=== PATIENT | female | born 1945 | race Two or more races ===

== ENCOUNTER 2016-09-03 14:13 | Inpatient (IN) | payer OTHER ==
--- NOTE | 2016-09-03 14:58 | PDOC ---
History of Present Illness - History of Present Illness Initial Comments: 09/03/16 16:07 [employer] #[id number] The patient is a 71 year old female, with a significant past medical history of hypertension and GERD, who presents to the emergency department with intermittent chest pain for 4 weeks. She states she was prompted to come into the ED when the pain woke her from sleep at 4:30AM. She reports the pain radiates across the area just under her breasts, as well as, from her right breast to her midsternal region. She reports some mild nausea when her pain radiates up her chest, but she attributes the nausea to her acid reflux. She states the pain occurs intermittently, both at rest and with exertion. She describes the pain as sharp and strong. She denies pain currently, but reports her pain is 10/10 while experiencing the pain. She denies lower extremity swelling. The patient reports having a negative cardiac cath in 2010. She denies shortness of breath, headache and dizziness. She denies fever, chills ,vomit, diarrhea. She denies dysuria, frequency, urgency and hematuria. Allergies: penicillins Past surgical history: partial thyroidectomy Social history: denies toxic habits PCP - Dr. Daniel Willis [employer] [facility] -Dr. Hargrove <Jennifer Crouch - Last Filed: 09/03/16 16:28> <Gail Lai - Last Filed: 09/05/16 10:34> - General Chief Complaint: Chest Pain Stated Complaint: 3 DAYS OF CHEST PAIN Time Seen by Provider: 09/03/16 14:37 Past History <Jennifer Crouch - Last Filed: 09/03/16 16:28> - Past Medical History HTN: Yes Thyroid Disease: Yes - Surgical History Appendectomy: Yes Cardiac Surgery: Yes (CARDIAC CATH NEG 2010) - Psycho/Social/Smoking Cessation Hx Anxiety: No Suicidal Ideation: No Smoking History: Former smoker Have you smoked in the past 12 months: No If you are a former smoker, when did you quit?: 2011 Information on smoking cessation initiated: No 'Breaking Loose' booklet given: 01/26/13 Hx Alcohol Use: No Drug/Substance Use Hx: No Substance Use Type: None <Gail Lai - Last Filed: 09/05/16 10:34> - Past Medical History Allergies/Adverse Reactions: Allergies Allergy/AdvReac Type Severity Reaction Status Date / Time Penicillins Allergy Verified 09/03/16 14:18 Home Medications: Ambulatory Orders Amlodipine Besylate [Norvasc -] 5 mg PO DAILY #0 tablet 01/27/13 Ramipril [Altace] 5 mg PO DAILY #0 capsule 01/27/13 Aspirin [Ecotrin] 81 mg PO DAILY 09/03/16 Review of Systems - Review of Systems Able to Perform ROS?: Yes Comments:: 09/03/16 16:09 GENERAL/CONSTITUTIONAL: No fever or chills. No weakness. HEAD, EYES, EARS, NOSE AND THROAT: No change in vision. No ear pain or discharge. No sore throat. CARDIOVASCULAR:(+) epigastric pain radiating to chest and throat. No shortness of breath. RESPIRATORY: No cough, wheezing, or hemoptysis. GASTROINTESTINAL: No nausea, vomiting, diarrhea or constipation. GENITOURINARY: No dysuria, frequency, or change in urination. MUSCULOSKELETAL: No joint or muscle swelling or pain. No neck or back pain. SKIN: No rash NEUROLOGIC: No headache, vertigo, loss of consciousness, or change in strength/ sensation. ENDOCRINE: No increased thirst. No abnormal weight change. HEMATOLOGIC/LYMPHATIC: No anemia, easy bleeding, or history of blood clots. ALLERGIC/IMMUNOLOGIC: No hives or skin allergy. <Jennifer Crouch - Last Filed: 09/03/16 16:28> *Physical Exam - Vital Signs Last Vital Signs Temp Pulse Resp BP Pulse Ox 97.6 F 52 L 20 117/74 100 09/03/16 14:16 09/03/16 15:56 09/03/16 15:56 09/03/16 15:56 09/03/16 15:56 - Physical Exam Comments: 09/03/16 16:10 GENERAL: Awake, alert, and fully oriented, in no acute distress HEAD: No signs of trauma EYES: PERRLA, EOMI, sclera anicteric, conjunctiva clear ENT: Auricles normal inspection, hearing grossly normal, nares patent, oropharynx clear without exudates. Moist mucosa NECK: Normal ROM, supple, no lymphadenopathy, JVD, or masses LUNGS: Breath sounds equal, clear to auscultation bilaterally. No wheezes, and no crackles HEART: Regular rate and rhythm, normal S1 and S2, no murmurs, rubs or gallops ABDOMEN: Soft, nontender, normoactive bowel sounds. No guarding, no rebound. No masses EXTREMITIES: Normal range of motion, no edema. No clubbing or cyanosis. No cords, erythema, or tenderness NEUROLOGICAL: Cranial nerves II through XII grossly intact. Normal speech, normal gait SKIN: Warm, Dry, normal turgor, no rashes or lesions noted. <Jennifer Crouch - Last Filed: 09/03/16 16:28> - Vital Signs Last Vital Signs Temp Pulse Resp BP Pulse Ox 97.6 F 48 L 18 137/52 98 09/03/16 14:16 09/03/16 14:16 09/03/16 14:16 09/03/16 14:16 09/03/16 14:16 <Gail Lai - Last Filed: 09/05/16 10:34> Heart Score/ECG Review - History History: Moderately suspicious - Electrocardiogram EKG: Normal - Age Age: >/= 65 - Risk Factors Risk Factors Heart Score: Yes Hx Hypertension Based on the list above the patient has:: 1-2 risk factors - Troponin Troponin: </= normal limit - Score Heart Score - Total: 4 <Gail Lai - Last Filed: 09/05/16 10:34> ED Treatment Course - LABORATORY CBC & Chemistry Diagram: 09/03/16 15:01 09/03/16 15:01 - ADDITIONAL ORDERS Additional order review: 09/03/16 15:01 RBC 4.23 MCV 90.8 MCHC 33.2 RDW 14.5 MPV 8.5 Neutrophils % 76.1 Lymphocytes % 16.1 Monocytes % 6.6 Eosinophils % 0.8 Basophils % 0.4 <Jennifer Crouch - Last Filed: 09/03/16 16:28> - LABORATORY CBC & Chemistry Diagram: 09/03/16 15:01 09/03/16 15:01 <Gail Lai - Last Filed: 09/05/16 10:34> Medical Decision Making - Medical Decision Making Dr. Gail Bardales was paged at 16:17 requesting a callback for doctor to doctor consult regarding admission of Dr. Willis's patient. Dr. Francescone was paged at 16:19 requesting a doctor to doctor consult. I have been informed that Dr. Velazco is on-call today. <Jennifer Crouch - Last Filed: 09/03/16 16:28> - Medical Decision Making Case d/w Dr. Velazco. Pt has been having cp/epigastric pain on and off for weeks , but had an episode that woke her from sleep in the middle of the night today. She is noted to have bradycardia, but no history of any beta-blockers. Will admit for further w/u. <Gail Lai - Last Filed: 09/05/16 10:34> *DC/Admit/Observation/Transfer - Attestations Scribe Attestion: 09/03/16 16:10 Documentation prepared by Jennifer Crouch, acting as adjunct faculty for medical terminology for Gail Lai MD <Jennifer Crouch - Last Filed: 09/03/16 16:28> - Discharge Dispostion Admit: Yes <Gail Lai - Last Filed: 09/05/16 10:34> Diagnosis at time of Disposition: Chest pain Qualifiers: Chest pain type: unspecified Qualified Code(s): R07.9 - Chest pain, unspecified - Discharge Dispostion Condition at time of disposition: Stable - Referrals
[2016-09-03 15:22] LABS: BASOPHIL 0.4 % (0-2.0); EOSINOPHIL 0.8 % (0-4.5); MCH 30.1 pg (25.7-33.7); MCHC 33.2 g/dl (32.0-36.0); MEAN CELL VOLUME 90.8 fl (80-96); MEAN PLT VOLUME 8.5 fl (7.5-11.1); NEUTROPHILS 76.1 % (42.8-82.8); PLATELET COUNT 295 K/MM3 (134-434); RDW 14.5 % (11.6-15.6); WHITE BLOOD COUNT 8.9 K/mm3 (4.0-10.0)
[2016-09-03 16:02] LABS: ALBUMIN 4.2 g/dl (3.4-5.0); ANION GAP 7 (8-16); BILIRUBIN,TOTAL 0.3 mg/dL (0.2-1.0); CALCIUM 9.9 mg/dL (8.5-10.1); CO2 28 mmol/L (21-32); COCKROFT - GAULT 83.2235; CREATININE 0.7 mg/dL (0.55-1.02); GLUCOSE,RANDOM 109 mg/dL (74-106); SGPT/ALT 19 U/L (12-78); TOT PROT 7.4 g/dl (6.4-8.2)
[2016-09-03 16:04] LABS: ALK PHOS 52 U/L (45-117); SGOT/AST 9 U/L (15-37); TROPONIN I < 0.02 ng/ml (0.00-0.05)
[2016-09-03 16:18] LABS: URINE APPEARANCE CLEAR; URINE BILIRUBIN NEGATIVE (NEGATIVE); URINE BLOOD NEGATIVE (NEGATIVE); URINE COLOR COLORLESS; URINE GLUCOSE (UA) NEGATIVE (NEGATIVE); URINE KETONE NEGATIVE (NEGATIVE); URINE LEUK ESTERASE NEGATIVE (NEGATIVE); URINE NITRITE NEGATIVE (NEGATIVE); URINE PROTEIN NEGATIVE (NEGATIVE); URINE UROBILINOGEN NEGATIVE E.U./dl (0.2-1.0)
--- NOTE | 2016-09-03 17:37 | CON.CARD ---
Consult Consult Specialty:: Cardiology Referred by:: ER Reason for Consultation:: Chest pain - History of Present Illness Chief Complaint: Chest pain History of Present Illness: 71 year old woman with h/o HTN, Ascending thoracic aortic aneurysm last 4.2cm, cardiac cath 2011 non-obstructive CAD, nuclear stress test 12/2015 with no ischemia, chronic atypical chest pain, asymptomatic sinus bradycardia came to ER with multiple episodes of chest pain today. Pt seen and examined in the ER in nad. no current chest pain. states that the pain is the same as always but happened multiple times today so she came to the ER. States the pain is not associated with exertion, sharp and pressure like radiating across her whole chest. no sob, palpitations, pnd, orthopnea, or LE edema. No lightheadedness, dizziness, syncope or near syncope. - History Source History Provided By: Patient, Family Member Limitations to Obtaining History: Language Barrier - Past Medical History Cardio/Vascular: Yes: Aneurysm, CAD, HTN, Hyperlipdemia - Alcohol/Substance Use Hx Alcohol Use: No - Smoking History Smoking history: Former smoker Have you smoked in the past 12 months: No If you are a former smoker, when did you quit?: 2012 - Social History ADL: Independent History of Recent Travel: No Home Medications - Allergies Allergies/Adverse Reactions: Allergies Allergy/AdvReac Type Severity Reaction Status Date / Time Penicillins Allergy Verified 09/03/16 14:18 - Home Medications Home Medications: Ambulatory Orders Amlodipine Besylate [Norvasc -] 5 mg PO DAILY #0 tablet 01/27/13 Ramipril [Altace] 5 mg PO DAILY #0 capsule 01/27/13 Aspirin [Ecotrin] 81 mg PO DAILY 09/03/16 Family Disease History - Family Disease History Family History: Denies Review of Systems - Review of Systems Constitutional: denies: No Symptoms, Chills, Diaphoresis, Fever, Lethargy, Loss of Appetite, Malaise, Night Sweats, Unintentional Wgt. Loss, Weakness, Other Eyes: denies: No Symptoms, Blind Spots, Blurred Vision, Double Vision, Eye Pain , Floaters, Photophobia, Recent Change in Vision, Other HENT: denies: No Symptoms, Difficult Swallowing, Ear Discharge, Ear Pain, Epistaxis, Gingival Bleeding, Hearing Loss, Mouth Swelling, Nasal Congestion, Ocular Prosthesis, Throat Pain, Toothache, Ringing in Ears, Other Neck: denies: No Symptoms, Decreased ROM, Lumps, Pain on Movement, Stiffness, Swollen Glands, Tenderness, Other Cardiovascular: reports: Chest Pain. denies: No Symptoms, Edema, Palpitations, Shortness of Breath, Other Respiratory: denies: No Symptoms, Cough, Exercise Intolerance, Hemoptysis, Orthopnea, PND, Snoring, SOB, SOB on Exertion, Wheezing, Other Gastrointestinal: denies: No Symptoms, Abdominal Pain, Bloating, Constipation, Diarrhea, Dysphagia, Indigestion, Melena, Nausea, Rectal Bleeding, Vomiting, Vomiting Blood, Other Genitourinary: denies: No Symptoms, Burning, Discharge, Dysuria, Flank Pain, Frequency, Hematuria, Incontinence, Lesions, Menses, Pain, Testicular Mass, Testicular Pain, Testicular Swelling, Urgency, Vaginal Bleeding, Other Breasts: denies: No Symptoms Reported, See HPI, Breast Implants, Discharge from Nipple, Lumps, Pain, Skin Changes, Other Musculoskeletal: denies: No Symptoms, Back Pain, Crepitus, Decreased ROM, Extremity Pain, Joint Pain, Joint Swelling, Muscle Pain, Muscle Cramps, Muscle Weakness, Other Integumentary: denies: No Symptoms, Blister, Bruising, Change in Color, Eczema, Erythema, Incision, Lesions, Lump, Pallor, Pruritis, Rash, Wound, Other Neurological: denies: No Symptoms, Change in LOC, Change in Speech, Confusion, Dizziness, Headache, Incoordination, Numbness, Parasthesia, Pre-Existing Deficit , Seizure, Syncope, Tremors, Unsteady Gait, Weakness, Other Endocrine: denies: No Symptoms, Excessive Sweating, Flushing, Increased Hunger, Increased Thirst, Intolerance to Cold, Intolerance to Heat, Unexplained Weight Gain, Unexplained Weight Loss, Other Hematology/Lymphatic: denies: No Symptoms, Easily Bruised, Excessive Bleeding, Swollen Glands, Other Psychiatric: denies: No Symptoms, Altered Sleep Pattern, Anxiety, Depression, Hallucinations, Panic, Paranoia, Suicidal, Other - Risk Factors Known Risk Factors: Yes: Hypercholesterolemia, Hypertension Vital Signs: Vital Signs Temperature 97.6 F 09/03/16 14:16 Pulse Rate 52 L 09/03/16 15:56 Respiratory Rate 20 09/03/16 15:56 Blood Pressure 117/74 09/03/16 15:56 O2 Sat by Pulse Oximetry (%) 100 09/03/16 15:56 Constitutional: Yes: Well Nourished, No Distress, Calm Eyes: Yes: WNL, Conjunctiva Clear, EOM Intact, PERRL HENT: Yes: WNL, Atraumatic, Normocephalic Neck: Yes: WNL, Supple, Trachea Midline Respiratory: Yes: WNL, Regular, CTA Bilaterally. No: Rales, Rhonchi, Wheezes Gastrointestinal: Yes: WNL, Normal Bowel Sounds, Soft. No: Distention, Tenderness Renal/: Yes: WNL Cardiovascular: Yes: WNL, Regular Rate and Rhythm. No: Bradycardia, Tachycardia , Pulse Irregular, Gallop, Rub, Varicosities JVD: No Carotid Bruit: No PMI: Non-Displaced Heart Sounds: Yes: S1, S2. No: Split S2, S3, S4, Clicks, Gallop, Rub, Bruit Murmur: No: Systolic Murmur, Diastolic Murmur Musculoskeletal: Yes: WNL Extremities: Yes: WNL Edema: No Peripheral Pulses WNL: Yes Peripheral Pulses: 2+ Left Doralis Pedis, 2+ Right Dorsalis Pedis Integumentary: Yes: WNL Neurological: Yes: WNL, Alert, Oriented, Cran Nerves II-XII Intact ...Motor Strength: WNL Psychiatric: Yes: WNL, Alert, Oriented - Other Data Labs, Other Data: CBC, BMP 09/03/16 15:01 09/03/16 15:01 Troponin, BNP 09/03/16 15:01 Troponin I < 0.02 Troponin, BNP 09/03/16 15:01 Troponin I < 0.02 ekg-sinus bradycardia 48bpm, NSST, no sig change from prior EKGS Echo: Report Reviewed Prior Cardiac Procedures: Cardiac Catheterization Imaging - Results Chest X-ray: Report Reviewed, Image Reviewed EKG: Report Reviewed, Image Reviewed Other: Report Reviewed, Image Reviewed Problem List - Problems (1) Chest pain Code(s): R07.9 - CHEST PAIN, UNSPECIFIED (2) Aortic aneurysm Code(s): I71.9 - AORTIC ANEURYSM OF UNSPECIFIED SITE, WITHOUT RUPTURE (3) CAD (coronary artery disease) Code(s): I25.10 - ATHSCL HEART DISEASE OF [place] CORONARY ARTERY W/O ANG PCTRS (4) HTN (hypertension) Code(s): I10 - ESSENTIAL (PRIMARY) HYPERTENSION (5) HLD (hyperlipidemia) Code(s): E78.5 - HYPERLIPIDEMIA, UNSPECIFIED (6) Abnormal EKG Code(s): R94.31 - ABNORMAL ELECTROCARDIOGRAM [ECG] [EKG] (7) Bradycardia Code(s): R00.1 - BRADYCARDIA, UNSPECIFIED Assessment/Plan 71 year old woman with h/o HTN, Ascending thoracic aortic aneurysm last 4.2cm, cardiac cath 2011 non-obstructive CAD, nuclear stress test 12/2015 with no ischemia, chronic atypical chest pain, asymptomatic sinus bradycardia came to ER with multiple episodes of chest pain today. Chest pain-atypical, unlikely ACS -cardiac cath as above -1st set cardiac enzymes wnl -no ischemia on ekg -trend serial cardiac enzymes and ekgs -tele observation overnight -will review cardiac cath results -pulses equal throughout and symptoms resolved, unlikely related to aortic aneursym -cont home meds including ASA -will check echo in am Aortic aneurysm-thoracic, mild last 4.2cm, stable -not on bblocker due to sinus bradycardia and fatigue -cont anti-HTN meds norvasc and ramipril HTN-adequate -cont home meds
[2016-09-03] MEDS ORDERED: ASPIRIN 81 MG CHEWABLE TABLETS PO ONE (18:04)
[2016-09-03] MEDS ORDERED: ASPIRIN 81 MG CHEWABLE TABLETS ONE (18:18)
[2016-09-04 03:35] LABS: TROPONIN I < 0.02 ng/ml (0.00-0.05)
--- NOTE | 2016-09-04 09:04 | PN ---
Progress Note, Physician Chief Complaint: feeling better - Current Medication List Current Medications: Active Medications Amlodipine Besylate (Norvasc -) 5 mg PO DAILY EARL Aspirin (Ecotrin -) 81 mg PO DAILY EARL Ramipril (Altace -) 5 mg PO DAILY EARL - Objective Vital Signs: Vital Signs Temperature 98.5 F 09/04/16 06:15 Pulse Rate 50 L 09/04/16 06:15 Respiratory Rate 20 09/04/16 06:15 Blood Pressure 143/79 09/04/16 09:01 O2 Sat by Pulse Oximetry (%) 99 09/04/16 06:15 Constitutional: Yes: No Distress Eyes: Yes: Conjunctiva Clear Cardiovascular: Yes: Regular Rate and Rhythm Respiratory: Yes: CTA Bilaterally Gastrointestinal: Yes: Soft Edema: No Neurological: Yes: Alert, Oriented ...Motor Strength: WNL Labs: Laboratory Tests 09/03/16 09/03/16 09/04/16 15:01 15:01 02:55 WBC 8.9 D Hct 38.4 Plt Count 295 Potassium 4.8 D Creatine Kinase 33 37 Troponin I < 0.02 < 0.02 - ....Imaging EKG: Image Reviewed Assessment/Plan Atypical CP Mildly dilated ascending aorta (4-4.2cm, stable) REC: Stress MPI today Repeat echo to assure ascending aorta stable, low suspicion pain related to aortic pathology. Further reccs pending these diagnostic studies today.
[2016-09-04] MEDS ORDERED: RAMIPRIL 5 MG CAPSULE (FP) PO SCH (10:00)
[2016-09-04] MEDS ORDERED: ASPIRIN COATED 81 MG TABLET.EC PO SCH (10:00)
[2016-09-04] MEDS ORDERED: amLODIPine BESYLATE 5 MG TABLET (FP) PO SCH (10:00)
--- NOTE | 2016-09-04 12:29 | EKG ---
Test Reason : Blood Pressure : / mmHG Vent. Rate : 048 BPM Atrial Rate : 048 BPM P-R Int : 180 ms QRS Dur : 082 ms QT Int : 420 ms P-R-T Axes : 037 052 033 degrees QTc Int : 375 ms SINUS BRADYCARDIA OTHERWISE NORMAL ECG WHEN COMPARED WITH ECG OF 19-MAR-2016 15:22, VENT. RATE HAS DECREASED BY 26 BPM Confirmed by HUEY MCKEON MD ([id number]) on 09/04/2016 12:29:21 PM Referred By: Confirmed By:HUEY MCKEON MD
[2016-09-04 13:45] VITALS: BMI 33.2
[2016-09-04 15:26] LABS: TROPONIN I < 0.02 ng/ml (0.00-0.05)
--- NOTE | 2016-09-04 16:38 | HP ---
Admitting History and Physical - Past Medical History Cardiovascular: Yes: Aneurysm, CAD, HTN, Hyperlipdemia ...: No - Smoking History Smoking history: Former smoker Have you smoked in the past 12 months: No If you are a former smoker, when did you quit?: 2011 - Alcohol/Substance Use Hx Alcohol Use: No - Social History ADL: Independent History of Recent Travel: No Home Medications - Allergies Allergies/Adverse Reactions: Allergies Allergy/AdvReac Type Severity Reaction Status Date / Time Penicillins Allergy Verified 09/03/16 14:18 - Home Medications Home Medications: Ambulatory Orders Amlodipine Besylate [Norvasc -] 5 mg PO DAILY #0 tablet 01/27/13 Ramipril [Altace] 5 mg PO DAILY #0 capsule 01/27/13 Aspirin [Ecotrin] 81 mg PO DAILY 09/03/16 Physical Examination Vital Signs: Vital Signs Temperature 98.6 F 09/04/16 13:19 Pulse Rate 61 09/04/16 13:19 Respiratory Rate 18 09/04/16 13:19 Blood Pressure 131/75 09/04/16 13:19 O2 Sat by Pulse Oximetry (%) 97 09/04/16 13:19 Problem List - Problems (1) Chest pain Code(s): R07.9 - CHEST PAIN, UNSPECIFIED Qualifiers: Chest pain type: unspecified Qualified Code(s): R07.9 - Chest pain, unspecified (2) HTN (hypertension) Code(s): I10 - ESSENTIAL (PRIMARY) HYPERTENSION (3) Hypothyroidism Code(s): E03.9 - HYPOTHYROIDISM, UNSPECIFIED
[2016-09-04 16:58] VITALS: BP 102/54; PULSE 53; TEMP 98.8
== END 2016-09-04 19:23 | disposition home or self-care (01) | DRG 313 ==
LOC: JER 14:13 → JERBED 17:33 → OBSVTOIN 09-04 01:08
PROVIDERS: ADMIT Internal Medicine; ATTEND Internal Medicine
DX: R07.9 Chest pain, unspecified (principal); K21.9 Gastro-esophageal reflux disease without esophagitis; I10 Essential (primary) hypertension; I71.2 Thoracic aortic aneurysm, without rupture; I25.10 Atherosclerotic heart disease of native coronary artery without angina pectoris; Z98.61 Coronary angioplasty status; R94.31 Abnormal electrocardiogram [ECG] [EKG]; R00.1 Bradycardia, unspecified; E78.5 Hyperlipidemia, unspecified; Z87.891 Personal history of nicotine dependence
CPT/HCPCS: 36415; 71010-TC; 78452-TC; 80053; 81003; 82550; 84484; 85025; 93005; 93010; 93017; 93306-TC; 99285-25; A9502; G0378

== ENCOUNTER 2018-01-19 15:20 | Emergency (ER) | payer OTHER ==
[2018-01-19 15:34] VITALS: BP 149/82; PULSE 92; TEMP 98.9; BMI 33.5
--- NOTE | 2018-01-19 15:37 | PDOC ---
Rapid Medical Evaluation Time Seen by Provider: 01/19/18 15:30 Medical Evaluation: Allergies Allergy/AdvReac Type Severity Reaction Status Date / Time Penicillins Allergy Verified 09/03/16 14:18 01/19/18 15:30 I have performed a brief in-person evaluation of this patient. The patient presents with a chief complaint of: R foot/Ankle swelling Pertinent physical exam findings:mid foot swelling and deformity in R foot I have ordered the following:xray The patient will proceed to the ED for further evaluation. Discharge Disposition - Diagnosis Foot pain, right - Referrals - Patient Instructions - Post Discharge Activity
[2018-01-19] MEDS ORDERED: IBUPROFEN 400 MG TABLET (FP) PO ONE ×2 (16:08→16:10)
--- NOTE | 2018-01-19 16:19 | PDOC ---
History of Present Illness - General Chief Complaint: Injury Stated Complaint: FALL Time Seen by Provider: 01/19/18 15:30 History Source: Patient Exam Limitations: Clinical Condition - History of Present Illness Initial Comments: 01/19/18 16:13 Patient with no sig Past medical history present with complain of right foot and ankle pain and swelling status post slip while going down stairs this afternoon. Patient denies loss of consciousness or hitting head doing fall. Denies any other symptoms. Patient reported increased pain with ambulation Timing/Duration: 1-3 hours Past History - Past Medical History Allergies/Adverse Reactions: Allergies Allergy/AdvReac Type Severity Reaction Status Date / Time Penicillins Allergy Verified 01/19/18 15:34 Home Medications: Ambulatory Orders Amlodipine Besylate [Norvasc -] 5 mg PO DAILY #0 tablet 01/27/13 Ramipril [Altace] 5 mg PO DAILY #0 capsule 01/27/13 Aspirin [Ecotrin] 81 mg PO DAILY 09/03/16 Ibuprofen 800 mg PO Q8H PRN #20 tablet 01/19/18 GI Disorders: Yes (GERD) HTN: Yes Thyroid Disease: Yes - Surgical History Appendectomy: Yes Cardiac Surgery: Yes (CARDIAC CATH NEG 2010) - Suicide/Smoking/Psychosocial Hx Smoking History: Never smoked Have you smoked in the past 12 months: No If you are a former smoker, when did you quit?: 2011 Information on smoking cessation initiated: No 'Breaking Loose' booklet given: 01/26/13 Hx Alcohol Use: No Drug/Substance Use Hx: No Substance Use Type: None Hx Substance Use Treatment: No Review of Systems - Review of Systems Able to Perform ROS?: Yes Is the patient limited Macanese proficient: No Constitutional: No: Chills, Diaphoresis, Fever, Loss of Appetite, Malaise, Night Sweats, Weakness, Weight Stable, Unintentional Wgt. Loss, Unexplained wgt Loss, Other HEENTM: No: Eye Pain, Blurred Vision, Tearing, Recent change in vision, Double Vision, Cataracts, Ear Pain, Ocular Prothesis, Ear Discharge, Nose Pain, Nose Congestion, Tinnitus, Nose Bleeding, Hearing Loss, Throat Pain, Throat Swelling , Mouth Pain, Dental Problems, Difficulty Swallowing, Mouth Swelling, Other Respiratory: No: Cough, Orthopnea, Shortness of Breath, SOB with Exertion, SOB at Rest, Stridor, Wheezing, Productive cough, Hemoptysis, Other Cardiac (ROS): No: Chest Pain, Edema, Irregular Heart Rate, Lightheadedness, Palpitations, Syncope, Chest Tightness, Other ABD/GI: No: Abdominal Distended, Abd. Pain w/ defecation, Blood Streaked Bowels , Constipated, Diarrhea, Difficulty Swallowing, Nausea, Poor Appetite, Poor Fluid Intake, Rectal Bleeding, Vomiting, Indigestion, Abdominal cramping, Tarry Stools, Other Musculoskeletal: Yes: See HPI, Joint Pain (right ankle), Joint Swelling (right foot and ankle), Muscle Pain (right foot). No: Muscle Weakness All Other Systems: Reviewed and Negative *Physical Exam - Vital Signs Last Vital Signs Temp Pulse Resp BP Pulse Ox 98.9 F 92 H 16 149/82 100 01/19/18 15:31 01/19/18 15:31 01/19/18 15:31 01/19/18 15:31 01/19/18 15:31 - Physical Exam Comments: 01/19/18 16:17 GENERAL: Well developed, well nourished. Awake and alert. No acute distress. HEENT: Normocephalic, atraumatic. PERRLA, EOMI. No conjunctival pallor. Sclera are non- icteric. Moist mucous membranes. Oropharynx is clear. NECK: Supple. Full ROM. No JVD. Carotid pulses 2+ and symmetric, without bruits. No thyromegaly. No lymphadenopathy. CARDIOVASCULAR: Regular rate and rhythm. No murmurs, rubs, or gallops. Distal pulses are 2+ and symmetric. PULMONARY: No evidence of respiratory distress. Lungs clear to auscultation bilaterally. No wheezing, rales or rhonchi. ABDOMINAL: Soft. Non-tender. Non-distended. No rebound or guarding. No organomegaly. Normoactive bowel sounds. MUSCULOSKELETAL : Moderate swelling and tenderness to dorsum of right foot. Mild tenderness to lateral malleolus of right foot. Left foot normal. Normal range of motion at all joints. No bony deformities or tenderness. No CVA tenderness. EXTREMITIES: No cyanosis. No clubbing. No edema. No calf tenderness. SKIN: Warm and dry. Normal capillary refill. No rashes. No jaundice. NEUROLOGICAL: Alert, awake, appropriate. Cranial nerves 2-12 intact. No deficits to light touch and temperature in face, upper extremities and lower extremities. No motor deficits in the in face, upper extremities and lower extremities. Normoreflexic in the upper and lower extremities. Normal speech. Toes are down- going bilaterally. Gait is normal without ataxia. PSYCHIATRIC: Cooperative. Good eye contact. Appropriate mood and affect. General Appearance: Yes: Nourished, Appropriately Dressed, Mild Distress ED Treatment Course - Medications Given in the ED: ED Medications Discontinued Medications Generic Name Dose Route Start Last Admin Trade Name Madeline PRN Reason Stop Dose Admin Ibuprofen 800 mg 01/19/18 16:08 01/19/18 16:13 Motrin - PO 01/19/18 16:09 800 mg ONCE ONE Administration Medical Decision Making - Medical Decision Making 01/19/18 16:19 Patient with no sig Past medical history presenting with complain of right foot pain and swelling status post twisting ankle while going downstairs this afternoon. Exam shows moderate tenderness and moderate swelling to dorsum of right foot with mild swelling to lateral aspect of right ankle. X-ray of right ankle and foot shows no acute fracture. Patient will be discharged home on a cast and Eusebio bandage wrap with crutches and orthopedist follow-up. Patient advised to keep weight off right foot for the next 3-4 days *DC/Admit/Observation/Transfer Diagnosis at time of Disposition: Foot pain, right Right foot sprain Qualifiers: Encounter type: initial encounter Qualified Code(s): S93.601A - Unspecified sprain of right foot, initial encounter Right ankle sprain Qualifiers: Encounter type: initial encounter Involved ligament of ankle: unspecified ligament Qualified Code(s): S93.401A - Sprain of unspecified ligament of right ankle, initial encounter - Discharge Dispostion Disposition: HOME Condition at time of disposition: Stable Decision to Admit order: No - Prescriptions Prescriptions: Ibuprofen 800 mg PO Q8H PRN #20 tablet PRN Reason: foot pain - Referrals Referrals: Mitchel Mckenzie MD [Staff Physician] - - Patient Instructions Printed Discharge Instructions: Ankle Sprain, DI for Foot Pain Additional Instructions: X-ray of right foot in ankle shows no acute fracture. Take prescribed medication as needed for pain. Use prescribed crutches to keep weight of right foot for the next 3-4 days. Elevate right foot redness 2-3 days. Follow-up with preferred orthopedics if symptoms persist for more than 5 days - Post Discharge Activity
== END 2018-01-19 16:49 | disposition home or self-care (01) ==
LOC: JERFT 15:20
DX: M79.671 Pain in right foot (principal); S93.601A Unspecified sprain of right foot, initial encounter; S93.401A Sprain of unspecified ligament of right ankle, initial encounter
CPT/HCPCS: 73610-TC-RT-FY; 73630-TC-RT-FY; 99281-25

== ENCOUNTER 2020-02-28 09:00 | Day surgery (SDC) | payer OTHER ==
[2020-02-27 12:03] VITALS: BMI 32.2
[2020-02-28 09:56] VITALS: TEMP 96.7
--- OUTSIDE RECORDS SUMMARY | 2020-02-28 11:36 | XMS ---
:[address] [facility] Support Name Relationship Address Phone RE, RETIRED Unavailable Unavailable Unavailable RE Unavailable Unavailable Unavailable RUIZ BABCOCKENIA DAUGHTER [address] [place] [address] NA Unavailable Unavailable Unavailable SHELBI BABCOCK NA Re-disclosure Warning The records that you are about to access may contain information from federally- assisted alcohol or drug abuse programs. If such information is present, then the following federally mandated warning applies: This information has been disclosed to you from records protected by federal confidentiality rules (42 CFR part 2). The federal rules prohibit you from making any further disclosure of this information unless further disclosure is expressly permitted by the written consent of the person to whom it pertains or as otherwise permitted by 42 CFR part 2. A general authorization for the release of medical or other information is NOT sufficient for this purpose. The Federal rules restrict any use of the information to criminally investigate or prosecute any alcohol or drug abuse patient.The records that you are about to access may contain highly sensitive health information, the redisclosure of which is protected by Article 27-F of the [facility] Public Health law. If you continue you may haveaccess to information: Regarding HIV / AIDS; Provided by facilities licensed or operated by the [facility] Office of Mental Health; or Provided by the [facility] Office for People With Developmental Disabilities. If such information is present, then the following [facility] mandated warning applies: This information has been disclosed to you from confidential records which are protected by state law. State law prohibits you from making any further disclosure of this information without the specific written consent of the person to whom it pertains, or as otherwise permitted by law. Any unauthorized further disclosure in violation of state law may result in a fine or mcfp sentence or both. A general authorization for the release of medical or other information is NOT sufficient authorization for further disclosure. Insurance Providers Payer name Policy type Policy ID Covered Covered democrat's Policy P asia / Coverage democrat ID relationship to Lorenzo Inf ormation type lorenzo HIP MEDICARE [id number] SP [id number] VIP 1 MEDICAID [id number] SP [id number] MEDICARE [id number] SP [id number] Results ID Date Data Source [id number] 02/23/2020 10:01:00 AM EDT [facility] Name Value Range Interpretation Description Data Sup porting Code Source(s) Document(s ) SARS [facility] coronavirus 2 RNA This lab was ordered by [facility] and reported by [facility]. ID Date Data Source [id number] 02/06/2020 11:25:00 AM EDT [facility] Name Value Range Interpretation Description Data Sup porting Code Source(s) Document(s ) 2019 Novel [facility] Coronavirus RNA Interpretation Unspecified Specimen Qualitative DYANA Probe Detection This lab was ordered by [facility] and reported by [facility]. ID Date Data Source [id number] 02/06/2020 12:00:00 AM EDT [facility] Name Value Range Interpretation Code Description Data Tosha rce(s) Supporting Document(s ) 2019-nCoV [facility] RNA XXX DYANA+probe- Imp This lab was ordered by [facility] and reported by [facility]. Procedure
[2020-02-28] MEDS ORDERED: ACETAMINOPHEN 325 MG TABLET (FP) PO ONE (13:25)
[2020-02-28] MEDS ORDERED: ACETAMINOPHEN 325 MG TABLET (FP) ONE (13:26)
[2020-02-28 13:35] VITALS: BP 160/64; PULSE 60
--- NOTE | 2020-02-29 17:17 | PATH ---
Cytology Non-Gynecological Report Patient Name: CHICA BABCOCK [facility]. Rec. #: [id number] /Age/Gender: 1945 (Age: 74) / F Account: [id number] Location: RADIOLOGY INTER Taken: 02/28/2020 Received: 02/28/2020 Reported: 02/29/2020 Physicians: Naima Tan M.D. Specimen(s) Received LEFT RENAL CYST Clinical History Left renal cyst Final Diagnosis RENAL CYST, LEFT, FOR CYTOLOGY: SATISFACTORY FOR EVALUATION. NEGATIVE FOR MALIGNANT CELLS. CYSTIC LESION WITH ISOLATED MACROPHAGES. PROTEINACEOUS MATERIAL/DEBRIS CONSISTENT WITH CYST CONTENTS AND ISOLATED MACROPHAGES PRESENT. Comment: Suggest clinical and radiologic a clinical correlation. Electronically Signed Radha Lan M.D. Gross Description Approximately 35 cc of yellow fluid received fixed in 50% alcohol. One cytofunnel prepared and Pap stained. One cellblock prepared.
== END 2020-02-28 14:10 | disposition home or self-care (01) ==
LOC: JRADIR 09:00
PROVIDERS: ATTEND Urology
PROC: 0TB03ZX Excision of Right Kidney, Percutaneous Approach, Diagnostic (ICD-10-PCS; principal; 2020-02-28)
PROC: 0T903ZX Drainage of Right Kidney, Percutaneous Approach, Diagnostic (ICD-10-PCS; 2020-02-28)
DX: N28.1 Cyst of kidney, acquired (principal)
CPT/HCPCS: 50390; 74425-TC-FY; 88108; 88305-TC

== ENCOUNTER 2020-08-29 15:47 | Emergency (ER) | payer OTHER ==
[2020-08-29 16:24] VITALS: BMI 30.2
[2020-08-29 19:20] LABS: PH,URINE 7.5 (5.0-8.0); URINE APPEARANCE CLEAR; URINE BILIRUBIN NEGATIVE (NEGATIVE); URINE COLOR YELLOW; URINE GLUCOSE (UA) NEGATIVE (NEGATIVE); URINE KETONE NEGATIVE (NEGATIVE); URINE LEUK ESTERASE NEGATIVE (NEGATIVE); URINE NITRITE NEGATIVE (NEGATIVE); URINE PROTEIN NEGATIVE (NEGATIVE); URINE UROBILINOGEN 0.2 mg/dL (0.2-1.0)
[2020-08-29 19:21] LABS: BASO % 0.5 % (0-2.0); EOS % 1.8 % (0-4.5); HEMATOCRIT 36.7 % (32.4-45.2); HEMOGLOBIN 12.2 GM/dL (10.7-15.3); LYMPH % 33.3 % (8-40); MCH 30.5 pg (25.7-33.7); MCHC 33.4 g/dl (32.0-36.0); MEAN CELL VOLUME 91.4 fl (80-96); MEAN PLT VOLUME 8.7 fl (7.5-11.1); NEUT % 56.4 % (42.8-82.8); PLATELET COUNT 294 K/MM3 (134-434); RBC 4.01 M/mm3 (3.60-5.2); RDW 15.3 % (11.6-15.6); WHITE BLOOD COUNT 5.4 K/mm3 (4.0-10.0)
[2020-08-29 19:27] LABS: INR 0.9 (0.83-1.09); PROTHROMBIN TIME (PATIENT) 11.1 SEC (9.7-13.0)
[2020-08-29 19:30] LABS: ACTIVATED PTT 29.7 SECONDS (25.2-36.5)
[2020-08-29 19:44] LABS: CHLORIDE 106 mmol/L (98-107); SODIUM 139 mmol/L (136-145)
[2020-08-29 19:46] LABS: ALBUMIN 4.1 g/dl (3.4-5.0); ANION GAP 2 MMOL/L (8-16); BLOOD UREA NITROGEN 20.7 mg/dL (7-18); CALCIUM 10.1 mg/dL (8.5-10.1); CO2 30 mmol/L (21-32); MAGNESIUM 2.3 mg/dL (1.8-2.4)
[2020-08-29 19:47] LABS: GLUCOSE,RANDOM 115 mg/dL (74-106)
[2020-08-29 19:49] LABS: PHOSPHOROUS 4.2 mg/dL (2.5-4.9); SGOT/AST 28 U/L (15-37); SGPT/ALT 36 U/L (13-61)
[2020-08-29 19:50] LABS: CREATININE 0.7 mg/dL (0.55-1.3)
[2020-08-29 19:51] LABS: BILIRUBIN,TOTAL 0.2 mg/dL (0.2-1); TOT PROT 7.5 g/dl (6.4-8.2)
[2020-08-29 19:52] LABS: ALK PHOS 65 U/L (45-117)
[2020-08-29 19:55] LABS: N-TERMINAL BNP 91.9 pg/ml (5-450)
[2020-08-30 00:39] VITALS: PULSE 68
[2020-08-30 00:43] VITALS: BP 156/76; TEMP 98.1
== END 2020-08-30 00:46 | disposition home or self-care (01) ==
LOC: JER 15:47
DX: R07.9 Chest pain, unspecified (principal)
CPT/HCPCS: 36415; 71045-TC-FY; 71275-TC; 80053; 81003; 82550; 83690; 83735; 83880; 84100; 84484; 85025; 85379; 85610; 85730; 87086; 87186; 93005; 93010; 99285-25; Q9967

== ENCOUNTER 2022-03-31 22:25 | Emergency (ER) | payer OTHER ==
[2022-03-31 22:57] VITALS: BP 150/90; PULSE 64; RESP 20; TEMP 97.7; BMI 27.4
[2022-03-31] MEDS ORDERED: ACETAMINOPHEN 1000 MG/100 ML BAG IVPB ONE (23:27)
[2022-03-31] MEDS ORDERED: METOCLOPRAMIDE HCL INJECTION 10 MG/2 ML VIAL IVPUSH ONE (23:28)
[2022-03-31] MEDS ORDERED: SODIUM CHLORIDE 0.9% 500 ML INFUS.BAG IV ONE (23:34)
[2022-03-31] MEDS ORDERED: ACETAMINOPHEN INJECTION 100 ML IVPB ONE (23:50)
[2022-03-31] MEDS ORDERED: METOCLOPRAMIDE HCL INJECTION 10 MG/2 ML VIAL ONE (23:50)
[2022-04-01 00:15] LABS: HEMATOCRIT 38.3 % (32.4-45.2); HEMOGLOBIN 12.8 GM/dL (10.7-15.3); MCH 30.6 pg (25.7-33.7); MCHC 33.4 g/dl (32.0-36.0); MEAN CELL VOLUME 91.8 fl (80-96); MEAN PLT VOLUME 8.7 fl (7.5-11.1); PLATELET COUNT 280 10^3/uL (134-434); RBC 4.17 M/mm3 (3.60-5.2); RDW 14.2 % (11.6-15.6); WHITE BLOOD COUNT 3.9 K/mm3 (4.0-10.0)
[2022-04-01 00:40] LABS: CALCIUM 9.5 mg/dL (8.5-10.1)
[2022-04-01 00:41] LABS: ALBUMIN 4.3 g/dl (3.4-5.0); BLOOD UREA NITROGEN 15.6 mg/dL (7-18)
[2022-04-01 00:44] LABS: CREATININE 0.7 mg/dL (0.55-1.3)
[2022-04-01 00:46] LABS: BILIRUBIN,TOTAL 0.3 mg/dL (0.2-1); TOT PROT 7.8 g/dl (6.4-8.2)
== END 2022-04-01 01:27 | disposition home or self-care (01) ==
LOC: JER 22:25
PROC: 3E0333Z Introduction of Anti-inflammatory into Peripheral Vein, Percutaneous Approach (ICD-10-PCS; principal; 2022-03-31)
PROC: 3E033GC Introduction of Other Therapeutic Substance into Peripheral Vein, Percutaneous Approach (ICD-10-PCS; 2022-03-31)
DX: R51.9 Headache, unspecified (principal)
CPT/HCPCS: 36415; 71046-TC-FY; 80053; 84484; 85027; 93005; 93010; 99285-25; C9803-CS; U0003; U0005

== ENCOUNTER 2023-08-09 17:56 | Emergency (ER) | payer OTHER ==
[2023-08-09 18:45] VITALS: TEMP 97.6; BMI 30.4
[2023-08-09] MEDS ORDERED: ACETAMINOPHEN INJECTION 100 ML IVPB ONE (19:39)
[2023-08-09 19:41] LABS: BASO % 0.3 % (0-2.0); EOS % 0.6 % (0-4.5); HEMATOCRIT 37.1 % (32.4-45.2); HEMOGLOBIN 12.4 GM/dL (10.7-15.3); LYMPH % 11.4 % (8-40); MCH 30.5 pg (25.7-33.7); MCHC 33.4 g/dl (32.0-36.0); MEAN CELL VOLUME 91.4 fl (80-96); MEAN PLT VOLUME 8.1 fl (7.5-11.1); MONO % 3.7 % (3.8-10.2); PLATELET COUNT 293 10^3/uL (134-434); RBC 4.06 M/mm3 (3.60-5.2); RDW 15.1 % (11.6-15.6)
[2023-08-09] MEDS: ACETAMINOPHEN 1000 MG/100 ML BAG IVPB ONE (19:43)
[2023-08-09] MEDS: morphine CARPU-JECT 2 MG/1 ML DISP.SYRIN IVPUSH ONE (19:43)
[2023-08-09 19:59] LABS: POTASSIUM 4.6 mmol/L (3.5-5.1)
[2023-08-09 20:00] LABS: ACTIVATED PTT 31.8 SECONDS (25.2-36.5); INR 0.99 (0.83-1.09); PROTHROMBIN TIME (PATIENT) 11.5 SEC (9.7-13.0)
[2023-08-09 20:01] LABS: BLOOD UREA NITROGEN 23.2 mg/dL (7-18); CALCIUM 9.9 mg/dL (8.5-10.1)
[2023-08-09 20:02] LABS: ALBUMIN 3.9 g/dl (3.4-5.0)
[2023-08-09 20:05] LABS: CREATININE 0.9 mg/dL (0.55-1.3)
[2023-08-09 20:06] LABS: BILIRUBIN,TOTAL 0.4 mg/dL (0.2-1); TOT PROT 7.4 g/dl (6.4-8.2)
[2023-08-09] MEDS ORDERED: MECLIZINE HCL 25 MG TABLET (FP) PO ONE (22:29)
[2023-08-09] MEDS ORDERED: MECLIZINE HCL 25 MG TABLET (FP) ONE (22:42)
[2023-08-09 22:54] VITALS: BP 130/56; PULSE 63; RESP 20
== END 2023-08-09 23:15 | disposition home or self-care (01) ==
LOC: JER 17:56
PROC: 3E030NZ Introduction of Analgesics, Hypnotics, Sedatives into Peripheral Vein, Open Approach (ICD-10-PCS; principal; 2023-08-09)
DX: S80.11XA Contusion of right lower leg, initial encounter (principal); M54.6 Pain in thoracic spine; R10.9 Unspecified abdominal pain; R60.0 Localized edema; K76.89 Other specified diseases of liver; R91.1 Solitary pulmonary nodule; W01.198A Fall on same level from slipping, tripping and stumbling with subsequent striking against other object, initial encounter
CPT/HCPCS: 36415; 70450-TC; 71045-TC-FY; 71260-TC; 72125-TC; 72128-TC; 72131-TC; 72170-TC-FY; 73562-TC-RT-FY; 73590-TC-RT-FY; 73610-TC-RT-FY; 73630-TC-RT-FY; 74177-TC; 80053; 85025; 85610; 85730; 93005; 93010; 99285-25; J0131; Q9967